=== PATIENT | male | born 1955 | race Caucasian/White ===

== ENCOUNTER 2024-04-21 22:36 | Emergency (ER) | payer OTHER, SELFPAY ==
[2024-04-21 22:36] VITALS: BMI 28.5
[2024-04-21 22:38] VITALS: BP 142/94
--- NOTE | 2024-04-21 23:23 | ED.GENMED ---
History of Present Illness
<Leandro Mendoza DO - Last Filed: 04/21/24 23:39>
General
Chief Complaint: Musculo-Skeletal Complaint
Time Seen by Provider: 04/21/24 22:52
<CARINA oVra - Last Filed: 04/21/24 23:41>
History of Present Illness
History of Present Illness:
Pt is a 68 y/o male presenting for right knee pain x1 hour. He states he was out for dinner and had '4 beers and a couple mixed drinks' and fell down the steps leaving. He states he landed on his right knee. He states the drinks might have caused
his to miss a step. He states he is having trouble moving the right knee and has 3-4/10 pain. He denies hitting his head or LOC. He denies any Headache, vision changes, dizziness, SP, SOB, nausea, vomiting.
Phy Exam
<ST DionyDE - Last Filed: 04/21/24 23:41>
Physical Exam
Physical Exam:
GENERAL: Pt appears visibly intoxicated in no apparent distress
EYE: pupils equal and reactive
Throat: Airway intact, no exudates
NECK: Supple, no significant adenopathy.
CARDIAC: Regular rate and rhythm .
LUNGS: Clear breath sounds bilaterally, no acute respiratory distress, no wheezes/rales/rhonchi
ABDOMEN: Soft, nondistended, nontender, no cvat
NEUROLOGICAL: Alert and oriented, no focal neuro deficits
SKIN: Warm and dry, skin intact.
MUSCULOSKELETAL: Right knee tender to palpation with 2/5 strength with flexion and 4/5 strength with extension. Step-off noted in area of right patellar tendon. Sensation intact b/l. Dorsalis pedis pulses 2+ b/l.
PSYCH: Normal and appropriate interaction.
Course
<DO Davy Jurado Last Filed: 04/21/24 23:39>
Orders/Labs/Results
Orders:
Orders
04/21/24 22:45
Knee, Right 4 or More Views [CR Knee- Right 4 Or More View*] Urgent
Comment:
Reason For Exam: injury
Vital Signs
Initial and Last Documented VS:
Initial Vital Signs
Temp Pulse Resp BP Pulse Ox
97.6 F 67 20 142/94 99
04/21/24 22:38 04/21/24 22:38 04/21/24 22:38 04/21/24 22:38 04/21/24 22:38
Last Documented Vital Signs
Temp Pulse Resp BP Pulse Ox
97.6 F 67 20 142/94 99
04/21/24 22:38 04/21/24 22:38 04/21/24 22:38 04/21/24 22:38 04/21/24 22:38
<CARINA Vora - Last Filed: 04/21/24 23:41>
Orders/Labs/Results
Orders:
Orders
04/21/24 22:45
Knee, Right 4 or More Views [CR Knee- Right 4 Or More View*] Urgent
Comment:
Reason For Exam: injury
Vital Signs
Initial and Last Documented VS:
Initial Vital Signs
Temp Pulse Resp BP Pulse Ox
97.6 F 67 20 142/94 99
04/21/24 22:38 04/21/24 22:38 04/21/24 22:38 04/21/24 22:38 04/21/24 22:38
Last Documented Vital Signs
Temp Pulse Resp BP Pulse Ox
97.6 F 67 20 142/94 99
04/21/24 22:38 04/21/24 22:38 04/21/24 22:38 04/21/24 22:38 04/21/24 22:38
<CARINA Vora - Last Filed: 04/21/24 23:41>
*Radiology
Radiology exam reviewed: preliminary read by ED provider
*Pulse Oximetry
Patient hypoxic: no
*EKG
Interpreted by ED Provider?: NA
*Diaper Machine Tender Interpretation
Rate: Diaper Machine Tender- N/A
*Critical Care Note
Total Time (30-74mins, 75-104mins- exclusive of procedures): Not Applicable
ED Attending Note
<Leandro Mendoza DO - Last Filed: 04/21/24 23:39>
ED Attending Note
Patient seen and examined by attending physician: Yes
I performed the substantive portion of visit, reviewed & personally made and approve the management plan that is documented in note by myself or MARYURI.: Yes
ED Attending Note:
I have reviewed Kareem's note
Patient with right knee pain and noticing that his knee gave out. He is unable to extend at the knee.
Physical exam reveals a empty space at the proximal aspect of the right patellar tendon. Patient is unable to extend at the knee. No knee effusion. No tenderness palpation of the patella itself or the tibia. Exam consistent with a patellar
tendon rupture.
Will place the patient in knee immobilizer and provided crutches. He is from [place] will follow-up with orthopedics when he gets home. He is going home tomorrow.
<CARINA Vora - Last Filed: 04/21/24 23:41>
-
Portions of this chart may have been created with voice recognition software.� Occasional wrong word or��sound alike� substitutions may have occurred due to the inherent limitations of voice recognition software.
Discharge Plan
Interventions
Interventions:
*Risk Screen - Suicide Last Done: 04/21/24 22:38
*General Assessment Last Done: 04/21/24 22:38
*Neglect/Abuse Screening Last Done: 04/21/24 22:38
ED- Fall Risk Assessment Last Done: 04/21/24 22:38
*ED COVID-19 Vaccine History Last Done: 04/21/24 22:38
Discharge Date and Time
Print Language: EGYPTIAN
[2024-04-22 02:47] VITALS: BP 142/79
[2024-04-22 04:00] VITALS: BP 148/67
[2024-04-22 06:10] VITALS: BP 151/91
[2024-04-22 06:47] VITALS: BP 151/91
== END 2024-04-22 06:35 | disposition home or self-care (01) ==
LOC: EMR 22:36
PROVIDERS: EMERGENCY PHYSICIAN Emergency Medicine
DX: M25.561 Pain in right knee (principal); W10.9XXA Fall (on) (from) unspecified stairs and steps, initial encounter
CPT/HCPCS: 99283; 73564